=== PATIENT | male | born 1940 | race Caucasian/White ===

== ENCOUNTER 2017-05-08 11:15 | Observation (INO) | payer MEDICARE ==
[~2017-05-08] VITALS: Ht 162.6 cm; Wt 106.5 kg
--- NOTE | 2017-05-08 11:26 | PD ---
HPI Chief Complaint: Syncope Time Seen by Provider: 11:20 Travel History International Travel<30 days: No Contact w/Intl Traveler<30days: No Traveled to known affect area: No History of Present Illness HPI 76-year-old male is brought in after having a syncopal episode. He has been having diarrhea since Saturday. He had about 6 episodes on Saturday. Yesterday he had about 6 episodes and had 2 episodes today. He says he has been eating okay but is not as hungry as usual. Today he was feeling very lightheaded and dizzy. He stood up and apparently had was had a syncopal episode which lasted for about 30 seconds. He has not had syncope before. He did not have any chest pain or palpitations. He woke up and he was profusely diaphoretic. [facility] reports that they initially were not able to obtain the radial pulse. He has no history of myocardial infarction or stroke. He had a root canal about a month ago and took amoxicillin at that time. He does have a history of hypertension but has not had his medication today. He had 2 back surgeries in 2001. he is visiting here from [facility] [place] Social History Tobacco Use: No Allergies-Medications (Allergen,Severity, Reaction): Uncoded Allergies: sulfa (Allergy, Unknown, 05/08/17) Review of Systems General / Constitutional: No: Fever, Chills Eyes: No: Diploplia, Blurred Vision HENT: Positive: Lightheadedness Cardiovascular: No: Chest Pain or Discomfort, Palpitations Respiratory: No: Cough, Shortness of Breath Gastrointestinal: Positive: Diarrhea, Loss of Appetite, No: Abdominal Pain, Hematochezia Genitourinary: No: Urgency, Frequency Musculoskeletal: No: Myalgias, Arthralgias Skin: No Rash, No Itching Neurologic: Positive: Weakness, Dizziness, Syncope Hematologic/Lymphatic: No: Easy Bruising Physical Exam Narrative GENERAL: Well-developed male SKIN: Focused skin assessment warm/dry. HEAD: Atraumatic. Normocephalic. EYES: Pupils equal and round. No scleral icterus. No injection or drainage. ENT: No nasal bleeding or discharge. Mucous membranes pink and moist. NECK: Trachea midline. No JVD. CARDIOVASCULAR: Regular rate and rhythm. No murmur appreciated. RESPIRATORY: No accessory muscle use. Clear to auscultation. Breath sounds equal bilaterally. GASTROINTESTINAL: Abdomen soft, non-tender, nondistended. Hepatic and splenic margins not palpable. MUSCULOSKELETAL: No obvious deformities. No clubbing. No cyanosis. No edema. NEUROLOGICAL: Awake and alert. No obvious cranial nerve deficits. Motor grossly within normal limits. Normal speech. PSYCHIATRIC: Appropriate mood and affect; insight and judgment normal. Data Data Last Documented VS Vital Signs Date Time Temp Pulse Resp B/P (MAP) Pulse Ox O2 Delivery O2 Flow Rate FiO2 05/08/17 12:04 91 16 102/55 (71) 95 Room Air 05/08/17 11:33 99.2 Orders Orders Electrocardiogram (05/08/17 11:20) Complete Blood Count With Diff (05/08/17 11:20) Comprehensive Metabolic Panel (05/08/17 11:20) Troponin I (05/08/17 11:20) Urinalysis - C+S If Indicated (05/08/17 11:20) Magnesium (Mg) (05/08/17 11:20) Enteric Path (Stool) (05/08/17 11:20) C Diff Toxin Pcr (05/08/17 11:20) Sodium Chlor 0.9% 1000 Ml Inj (Ns 1000 M (05/08/17 11:30) Labs Laboratory Tests Test 05/08/17 11:30 White Blood Count 10.5 TH/MM3 Red Blood Count 4.72 MIL/MM3 Hemoglobin 14.5 GM/DL Hematocrit 43.9 % Mean Corpuscular Volume 93.0 FL Mean Corpuscular Hemoglobin 30.7 PG Mean Corpuscular Hemoglobin Concent 33.0 % Red Cell Distribution Width 13.2 % Platelet Count 281 TH/MM3 Mean Platelet Volume 8.5 FL Neutrophils (%) (Auto) 77.0 % Lymphocytes (%) (Auto) 9.0 % Monocytes (%) (Auto) 10.4 % Eosinophils (%) (Auto) 2.6 % Basophils (%) (Auto) 1.0 % Neutrophils # (Auto) 8.1 TH/MM3 Lymphocytes # (Auto) 0.9 TH/MM3 Monocytes # (Auto) 1.1 TH/MM3 Eosinophils # (Auto) 0.3 TH/MM3 Basophils # (Auto) 0.1 TH/MM3 CBC Comment DIFF FINAL Differential Comment Blood Urea Nitrogen 30 MG/DL Creatinine 1.70 MG/DL Random Glucose 130 MG/DL Total Protein 7.4 GM/DL Albumin 3.4 GM/DL Calcium Level 8.5 MG/DL Magnesium Level 1.8 MG/DL Alkaline Phosphatase 115 U/L Aspartate Amino Transf (AST/SGOT) 19 U/L Alanine Aminotransferase (ALT/SGPT) 24 U/L Total Bilirubin 0.3 MG/DL Sodium Level 135 MEQ/L Potassium Level 4.3 MEQ/L Chloride Level 101 MEQ/L Carbon Dioxide Level 27.3 MEQ/L Anion Gap 7 MEQ/L Estimat Glomerular Filtration Rate 39 ML/MIN Troponin I LESS THAN 0.02 NG/ML MDM Medical Decision Making Medical Screen Exam Complete: Yes Emergency Medical Condition: Yes Medical Record Reviewed: Yes Differential Diagnosis Differential includes dehydration, dysrhythmia, syncope Narrative Course Hemoglobin is 14.5 with a white count of 10,000. His BUN is 30 with creatinine of 1.7. The patient does have a history of some kidney trouble and does see a contact clerk. His is able to retrieve previous lab results and on January 10 his BUN was 26 with a creatinine of 1.5. I believe his syncope was secondary to dehydration. It was an orthostatic event. EKG shows a sinus rhythm. There are T inversions in V1 through V3 Diagnosis Primary Impression: Syncope Additional Impression: Dehydration Admitting Information Admitting Physician Requests: Admit Ra Cota MD May 08, 2017 11:26
[2017-05-08] MEDS ORDERED: SODIUM CHLOR 0.9% 1000 ML INJ 1,000 ML IV ONE (11:30)
[2017-05-08 11:33] VITALS: BP 118/64; PULSE 93; RESP 16; TEMP 99.2; O2SAT 92
[2017-05-08 11:36] LABS: AUTOMATED NEUTROPHIL # 8.1 TH/MM3 (1.8-7.7); BASOPHIL # 0.1 TH/MM3 (0-0.2); EOSINOPHIL # 0.3 TH/MM3 (0-0.4); EOSINOPHIL % 2.6 % (0.0-4.0); HEMATOCRIT 43.9 % (39.0-51.0); HEMOGLOBIN 14.5 GM/DL (13.0-17.0); LYMPHOCYTE # 0.9 TH/MM3 (1.0-4.8); MEAN CORPUSCULAR HEMOGLOBIN 30.7 PG (27.0-34.0); MEAN PLATELET VOLUME 8.5 FL (7.0-11.0); MONO % 10.4 % (0.0-8.0); MONOCYTE # 1.1 TH/MM3 (0-0.9); PLATELET COUNT 281 TH/MM3 (150-450); RED BLOOD COUNT 4.72 MIL/MM3 (4.50-5.90); RED CELL DISTRIBUTION WIDTH 13.2 % (11.6-17.2); WHITE BLOOD COUNT 10.5 TH/MM3 (4.0-11.0)
[2017-05-08 11:44] LABS: CHLORIDE 101 MEQ/L (98-107); SODIUM (NA) 135 MEQ/L (136-145)
[2017-05-08 11:47] LABS: CALCIUM 8.5 MG/DL (8.5-10.1)
[2017-05-08 11:48] LABS: ALBUMIN 3.4 GM/DL (3.4-5.0); BICARBONATE 27.3 MEQ/L (21.0-32.0); BLOOD UREA NITROGEN 30 MG/DL (7-18); GLUCOSE,RANDOM 130 MG/DL (74-106); MAGNESIUM 1.8 MG/DL (1.5-2.5)
[2017-05-08 11:51] LABS: ALT (GPT) 24 U/L (12-78); AST (GOT) 19 U/L (15-37); GLOMERULAR FILTRATION RATE 39 ML/MIN (>89)
[2017-05-08 11:52] LABS: TOTAL BILIRUBIN ADULT 0.3 MG/DL (0.2-1.0)
[2017-05-08 11:53] LABS: TOTAL PROTEIN 7.4 GM/DL (6.4-8.2)
[2017-05-08 11:54] LABS: ALKALINE PHOSPHATASE 115 U/L (45-117)
[2017-05-08 11:56] LABS: TROPONIN I LESS THAN 0.02 NG/ML (0.02-0.05)
[2017-05-08 12:04] VITALS: BP 102/55; PULSE 91; RESP 16; O2SAT 95
[2017-05-08] MEDS ORDERED: ACETAMINOPHEN 325 MG TAB PO PRN (12:30)
[2017-05-08] MEDS ORDERED: ONDANSETRON HCL 4 MG/2 ML VIAL IVP PRN (12:30)
[2017-05-08] MEDS ORDERED: SODIUM CHLORIDE 0.9% FLUSH 10 ML FLUSH IV FLUSH PRN (12:30)
[2017-05-08] MEDS ORDERED: NALOXONE HCL 0.4 MG/ML AMP IV PUSH PRN (12:30)
--- NOTE | 2017-05-08 12:46 | EKG ---
Date Performed: 05/08/2017 Time Performed: 11:31:32 PTAGE: 76 years EKG: Sinus rhythm LOW QRS VOLTAGE IN PRECORDIAL LEADS NONSPECIFIC T-WAVE ABNORMALITY BORDERLINE ECG NO PREVIOUS TRACING DOCTOR: Francisco Rodriguez Interpretating Date/Time 05/08/2017 12:45:39
[2017-05-08] MEDS: SODIUM CHLOR 0.9% 1000 ML INJ 1,000 ML IV SCH ×2 (12:47→22:21)
[2017-05-08 13:06] VITALS: BP 90/53; PULSE 104; RESP 20; O2SAT 96
[2017-05-08 13:45] VITALS: BP 113/62; PULSE 94; RESP 18; TEMP 100.6; O2SAT 94
[2017-05-08] MEDS ORDERED: ENAL20TA PO (14:29)
[2017-05-08] MEDS ORDERED: PRAV10TA PO (14:30)
[2017-05-08] MEDS ORDERED: METO-309 PO (14:30)
[2017-05-08] MEDS ORDERED: CHLOR50 PO (14:32)
[2017-05-08 14:44] LABS: BILIRUBIN, URINE NEG (NEG); BLOOD, URINE NEG (NEG); GLUCOSE,URINE NEG (NEG); KETONE, URINE NEG (NEG); NITRITE,URINE NEG (NEG); URINE LEUKOCYTE ESTERASE NEG (NEG)
[2017-05-08 15:05] LABS: SQUAMOUS EPITHELIAL CELL URINE 0-5 /hpf (0-5); URINE COLOR YELLOW (YELLW/STRAW); WBC, URINE 0-2 /hpf (0-5)
--- NOTE | 2017-05-08 15:52 | HHI.HP ---
[facility] Non-Staff Admission Diagnosis SYNCOPE, DEHYDRATION Diagnoses: Chief Complaint: Syncope Travel History International Travel<30 Days: No Contact w/Intl Traveler <30 Da: No Traveled to Known Affected Are: No Sepsis Criteria SIRS Criteria (2 or more): Heart rate over 90 History of Present Illness This is a pleasant 76-year-old male patient with a known medical history of hypertension and hyperlipidemia and chronic kidney disease who presented to the ED post syncopal episode. Patient states that he was sitting on his porch around 10 AM this morning with his when he got up from the table and stated how he felt lightheaded and "did not feel right"when shortly after, per , his eyes rolled back and he fell towards the wall. states that patient was caught by a friend and herself and softly brought to the floor. Patient was reportedly with loss of consciousness for 30 seconds and slowly woke up. Denies hitting his head. Denies ever having a syncopal episode before. Patient last remembers waking up on the ground and [facility] tending to him. Patient denies any recent fevers, chills, headache, shortness of breath, abdominal pain, nausea, vomiting or dysuria. Patient does state that he has had a nonproductive cough for the past few weeks. He also states that he's had diarrhea last week, his last bout was on Saturday. Patient states his appetite has been good. Denies any changes in medications. Does state he underwent a root canal one month ago, was given amoxicillin at that time. Patient is visiting from [place] with his . Review of Systems Constitutional: COMPLAINS OF: Diaphoretic episodes, DENIES: Fatigue, Fever, Chills Eyes: DENIES: Blurred vision, Diplopia Respiratory: COMPLAINS OF: Cough, DENIES: Sputum production, Shortness of breath Cardiovascular: COMPLAINS OF: Syncope, DENIES: Chest pain, Palpitations Gastrointestinal: COMPLAINS OF: Diarrhea, DENIES: Abdominal pain, Black stools , Bloody stools, Constipation, Nausea, Vomiting Genitourinary: DENIES: Sexual dysfunction Musculoskeletal: DENIES: Joint pain Integumentary: DENIES: Abnormal pigmentation Psychiatric: DENIES: Anxiety Except as stated in HPI: all other systems reviewed are Neg Past Family Social History Past Medical History Hypertension Hyperlipidemia Diverticulitis Chronic kidney disease Past Surgical History Back surgery with elvira placement 2 in 2001. Reported Medications Active Reported Chlorthalidone 50 Mg Tab 50 Mg PO DAILY Pravastatin 10 Mg Tab 10 Mg PO HS Lopressor (Metoprolol Tartrate) 50 Mg Tab 50 Mg PO BID Enalapril (Enalapril Maleate) 20 Mg Tab 20 Mg PO BID Allergies: Uncoded Allergies: sulfa (Allergy, Unknown, 05/08/17) Active Ordered Medications Current Medications Medications (Trade) Dose Ordered Sig/Kvng Route Start Time Stop Time Status Last Admin Sodium Chloride 1,000 ml @ 100 mls/hr Q10H IV 05/08/17 12:17 05/08/17 12:47 (NS Flush) 2 ml UNSCH PRN IV FLUSH 05/08/17 12:30 (NS Flush) 2 ml BID IV FLUSH 05/08/17 21:00 (Tylenol) 650 mg Q4H PRN PO 05/08/17 12:30 05/08/17 14:04 (Zofran Inj) 4 mg Q6H PRN IVP 05/08/17 12:30 (Narcan Inj) 0.4 mg UNSCH PRN IV PUSH 05/08/17 12:30 Family History Patient's father had history of dementia. Mother had a history of cardiovascular disease. Social History Denies any previous or current tobacco use. Admits to social alcohol use. Denies any illicit drug use. Physical Exam Vital Signs Vital Signs Date Time Temp Pulse Resp B/P (MAP) Pulse Ox O2 Delivery O2 Flow Rate FiO2 05/08/17 13:45 100.6 94 18 113/62 (79) 94 05/08/17 13:37 05/08/17 13:06 104 20 90/53 (65) 96 Room Air 05/08/17 12:04 91 16 102/55 (71) 95 Room Air 05/08/17 11:33 99.2 93 16 118/64 (82) 92 Physical Exam GENERAL: Well-nourished, well-developed patient in NAD. SKIN: Warm and dry. No rash. HEAD: Normocephalic. Atraumatic. EYES: Pupils equal and round. No scleral icterus. No injection or drainage. ENT: No nasal bleeding or discharge. Mucous membranes pink and moist. NECK: Supple. Trachea midline. CARDIOVASCULAR: Regular rate and rhythm. S1, S2 noted. No murmur appreciated. RESPIRATORY: No accessory muscle use. Clear to auscultation. Breath sounds equal bilaterally. GASTROINTESTINAL: Abdomen soft, non-tender, nondistended. Round. Normoactive bowel sounds x4. MUSCULOSKELETAL: No obvious deformities. Extremities without clubbing, cyanosis , or edema. NEUROLOGICAL: Awake and alert. No obvious cranial nerve deficits. Motor grossly within normal limits. 5/5 muscle strength in bilateral upper and lower extremities. Normal speech. PSYCHIATRIC: Appropriate mood and affect; insight and judgment normal. Laboratory Laboratory Tests Test 05/08/17 11:30 05/08/17 14:13 White Blood Count 10.5 Red Blood Count 4.72 Hemoglobin 14.5 Hematocrit 43.9 Mean Corpuscular Volume 93.0 Mean Corpuscular Hemoglobin 30.7 Mean Corpuscular Hemoglobin Concent 33.0 Red Cell Distribution Width 13.2 Platelet Count 281 Mean Platelet Volume 8.5 Neutrophils (%) (Auto) 77.0 Lymphocytes (%) (Auto) 9.0 Monocytes (%) (Auto) 10.4 Eosinophils (%) (Auto) 2.6 Basophils (%) (Auto) 1.0 Neutrophils # (Auto) 8.1 Lymphocytes # (Auto) 0.9 Monocytes # (Auto) 1.1 Eosinophils # (Auto) 0.3 Basophils # (Auto) 0.1 CBC Comment DIFF FINAL Differential Comment Blood Urea Nitrogen 30 Creatinine 1.70 Random Glucose 130 Total Protein 7.4 Albumin 3.4 Calcium Level 8.5 Magnesium Level 1.8 Alkaline Phosphatase 115 Aspartate Amino Transf (AST/SGOT) 19 Alanine Aminotransferase (ALT/SGPT) 24 Total Bilirubin 0.3 Sodium Level 135 Potassium Level 4.3 Chloride Level 101 Carbon Dioxide Level 27.3 Anion Gap 7 Estimat Glomerular Filtration Rate 39 Troponin I LESS THAN 0.02 Urine Color YELLOW Urine Turbidity CLEAR Urine pH 6.0 Urine Specific [place] 1.013 Urine Protein NEG Urine Glucose (UA) NEG Urine Ketones NEG Urine Occult Blood NEG Urine Nitrite NEG Urine Bilirubin NEG Urine Leukocyte Esterase NEG Urine WBC 0-2 Urine Squamous Epithelial Cells 0-5 Microscopic Urinalysis Comment CULT NOT INDICATED Result Diagram: 05/08/17 1130 05/08/17 1130 Septic Shock Reassessment Septic shock perfusion: reassessment completed Caprini VTE Risk Assessment Caprini VTE Risk Assessment: Mod/High Risk (score >= 2) Caprini Risk Assessment Model Point Value = 1 Point Value = 2 Point Value = 3 Point Value = 5 Age 41-60 Minor surgery BMI > 25 kg/m2 Swollen legs Varicose veins or History of unexplained or recurrent spontaneous Oral contraceptives or hormone replacement Sepsis (< 1 month) Serious lung disease, including pneumonia (< 1 month) Abnormal pulmonary function Acute myocardial infarction Congestive heart failure (< 1 month) History of inflammatory bowel disease Medical patient at bed rest Age 61-74 Arthroscopic surgery Major open surgery (> 45 min) Laparoscopic surgery (> 45 min) Malignancy Confined to bed (> 72 hours) Immobilizing plaster cast Central venous access Age >= 75 History of VTE Family history of VTE Factor V Leiden Prothrombin [id number] Lupus anticoagulant Anticardiolipin antibodies Elevated serum homocysteine Heparin-induced thrombocytopenia Other congenital or acquired thrombophilia Stroke (< 1 month) Elective arthroplasty Hip, pelvis, or leg fracture Acute spinal cord injury (< 1 month) Prophylaxis Regimen Total Risk Factor Score Risk Level Prophylaxis Regimen 0-1 Low Early ambulation 2 Moderate Order ONE of the following: *Sequential Compression Device (SCD) *Heparin 5000 units SQ BID 3-4 Higher Order ONE of the following medications: *Heparin 5000 units SQ TID *Enoxaparin/Lovenox 40 mg SQ daily (WT < 150 kg, CrCl > 30 mL/min) *Enoxaparin/Lovenox 30 mg SQ daily (WT < 150 kg, CrCl > 10-29 mL/min) *Enoxaparin/Lovenox 30 mg SQ BID (WT < 150 kg, CrCl > 30 mL/min) AND/OR *Sequential Compression Device (SCD) 5 or more Highest Order ONE of the following medications: *Heparin 5000 units SQ TID (Preferred with Epidurals) *Enoxaparin/Lovenox 40 mg SQ daily (WT < 150 kg, CrCl > 30 mL/min) *Enoxaparin/Lovenox 30 mg SQ daily (WT < 150 kg, CrCl > 10-29 mL/min) *Enoxaparin/Lovenox 30 mg SQ BID (WT < 150 kg, CrCl > 30 mL/min) AND *Sequential Compression Device (SCD) Assessment and Plan Problem List: (1) Syncope ICD Code: R55 - Syncope and collapse Status: Acute Plan: Patient presented post syncopal episode suspect secondary to dehydration due to diarrhea. Denies hitting head. Positive loss of consciousness. Status post 1 L NS bolus. Continue IV fluid. Encouraged PO intake. No leukocytosis. TMAX 100.6. Source unknown. UA negative. Stool studies ordered including C. difficile. Follow. Patient states diarrhea has almost resolved. CBC and BMP essentially unremarkable. Orthostatic blood pressures obtained, and are negative. PT following, appreciate input and recommendations. Symptoms have all improved at this time. Monitor. Continue cardiac telemetry, monitor for any arrhythmias. EKG reviewed showing NSR with controlled HR. Monitor for any further fevers. Will check lab work in a.m. Follow. Patient's blood pressure has been on the lower side. Will hold home BP medications and continue home metoprolol for heart rate control. Monitor BP trends. Hypotension could be a reason for syncopal episode. (2) Chronic kidney disease (CKD) ICD Code: N18.9 - Chronic kidney disease, unspecified Plan: Creatinine upon presentation 1.7. Per patient's patient's baseline is 1.5. Continue IV fluids. Most likely dehydrated. (3) Cough ICD Code: R05 - Cough Plan: Patient with complaints of cough 2 weeks. Will obtain chest x-ray. Continue to follow. (4) Hyperlipidemia ICD Code: E78.5 - Hyperlipidemia, unspecified Plan: Continue home statin. DVT Prophylaxis: SCDs. Problem Qualifiers (1) Syncope: Monserrat Johnson May 08, 2017 15:52
[2017-05-08 16:00] VITALS: BP 117/63; PULSE 90; RESP 18; TEMP 99.3; O2SAT 95
--- NOTE | 2017-05-08 16:42 | RADRPT ---
EXAM DATE/TIME: 05/08/2017 16:15 [facility] COMPARISON: No previous studies available for comparison. INDICATIONS : Cough, chest congestion for 3 days MEDICAL HISTORY : None. SURGICAL HISTORY : None. ENCOUNTER: Initial ACUITY: 3 days PAIN SCORE: 0/10 LOCATION: Bilateral chest FINDINGS: Mild cardiomegaly is noted. The pulmonary vascular pattern is normal. The lungs are clear. CONCLUSION: Mild cardiomegaly. No acute focal pulmonary infiltrate or pulmonary vascular congesti on. Robert Luis MD on May 08, 2017 at 16:39 Board Certified Radiologist. This report was verified electronically.
[2017-05-08 20:00] VITALS: BP_SYST 107; BP_SYST 125; BP_SYST 135; BP_DIAS 68; BP_DIAS 72; BP_DIAS 73; PULSE 75; PULSE 85; RESP 20; TEMP 98.7; O2SAT 96
[2017-05-08 20:14] LABS: CHOLESTEROL 158 MG/DL (120-200); TRIGLYCERIDES 128 MG/DL (42-150)
[2017-05-08 20:16] LABS: HDL CHOLESTEROL 39.5 MG/DL (40.0-60.0); LDL CHOLESTEROL 93 MG/DL (0-99)
[2017-05-08] MEDS ORDERED: PRAVASTATIN SOD 10 MG TAB PO SCH (21:00)
[2017-05-08] MEDS: SODIUM CHLORIDE 0.9% FLUSH 10 ML FLUSH IV FLUSH SCH (21:06)
[2017-05-08] MEDS: METOPROLOL TARTRATE 50 MG TAB PO SCH (21:06)
[2017-05-09] VITALS: BP 103/65; PULSE 67; RESP 20; TEMP 98.8; O2SAT 97
[2017-05-09 04:00] VITALS: BP 119/69; PULSE 68; RESP 20; TEMP 97.9; O2SAT 97
[2017-05-09 07:07] LABS: AUTOMATED NEUTROPHIL # 5.1 TH/MM3 (1.8-7.7); BASOPHIL # 0.1 TH/MM3 (0-0.2); BASOPHIL % 0.9 % (0.0-2.0); EOSINOPHIL # 0.2 TH/MM3 (0-0.4); EOSINOPHIL % 2.2 % (0.0-4.0); HEMOGLOBIN 13.5 GM/DL (13.0-17.0); LYMPH % 17.8 % (9.0-44.0); LYMPHOCYTE # 1.4 TH/MM3 (1.0-4.8); MEAN CELL VOLUME 93.9 FL (80.0-100.0); MEAN PLATELET VOLUME 8.7 FL (7.0-11.0); MONO % 13.8 % (0.0-8.0); MONOCYTE # 1.1 TH/MM3 (0-0.9); NEUT % 65.3 % (16.0-70.0); PLATELET COUNT 237 TH/MM3 (150-450); RED BLOOD COUNT 4.37 MIL/MM3 (4.50-5.90); RED CELL DISTRIBUTION WIDTH 13.6 % (11.6-17.2); WHITE BLOOD COUNT 7.9 TH/MM3 (4.0-11.0)
[2017-05-09 07:13] LABS: BICARBONATE 25.2 MEQ/L (21.0-32.0)
[2017-05-09 07:42] LABS: CREATININE 1.3 MG/DL (0.60-1.30)
[2017-05-09 08:00] VITALS: BP 152/93; PULSE 81; RESP 18; TEMP 99.3; O2SAT 95
[2017-05-09 08:09] VITALS: PULSE 72
[2017-05-09] MEDS: SODIUM CHLOR 0.9% 1000 ML INJ 1,000 ML IV SCH (08:33)
[2017-05-09] MEDS: SODIUM CHLORIDE 0.9% FLUSH 10 ML FLUSH IV FLUSH SCH (08:34)
[2017-05-09] MEDS: METOPROLOL TARTRATE 50 MG TAB PO SCH (08:34)
--- NOTE | 2017-05-09 08:49 | HHI.PR ---
Subjective Remarks Follow-up syncopal episode and dehydration. Patient seen and examined, sitting up in chair eating breakfast. States he's doing much improved, all symptoms have resolved. No lightheadedness, dizziness or syncopal episodes overnight. Patient has been eating well and drinking well. Has received IV fluids. Positive BM. Denies any nausea or vomiting. All vitals are stable. Afebrile. Objective Vitals Vital Signs Date Time Temp Pulse Resp B/P (MAP) Pulse Ox O2 Delivery O2 Flow Rate FiO2 05/09/17 08:00 99.3 81 18 152/93 (112) 95 05/09/17 04:00 97.9 68 20 119/69 (86) 97 05/09/17 00:00 98.8 67 20 103/65 (78) 97 05/08/17 20:00 98.7 85 20 107/68 (81) 96 125/72 (89) 135/73 (93) 05/08/17 20:00 75 05/08/17 16:00 99.3 90 18 117/63 (81) 95 05/08/17 13:45 100.6 94 18 113/62 (79) 94 05/08/17 13:37 05/08/17 13:06 104 20 90/53 (65) 96 Room Air 05/08/17 12:04 91 16 102/55 (71) 95 Room Air 05/08/17 11:33 99.2 93 16 118/64 (82) 92 I/O 05/08/17 05/08/17 05/08/17 05/09/17 05/09/17 05/09/17 07:00 15:00 23:00 07:00 15:00 23:00 Intake Total 1000 ml 1670 ml 480 ml Output Total 1350 ml 600 ml Balance 1000 ml 320 ml -120 ml Intake Oral 670 ml 480 ml IV Total 1000 ml 1000 ml Output Urine Total 1350 ml 600 ml Result Diagram: 05/09/1730 05/09/17 0630 Imaging Last Impressions Chest X-Ray 05/08/17 0000 Signed Impressions: Service Date/Time: Monday, May 08, 2017 16:15 - CONCLUSION: Mild cardiomegaly. No acute focal pulmonary infiltrate or pulmonary vascular congestion. Robert Luis MD Objective Remarks GENERAL: Well-nourished, well-developed patient in NAD. SKIN: Warm and dry. No rash. HEENT: Normocephalic. Atraumatic.Pupils equal and round. No scleral icterus. No injection or drainage. No nasal bleeding or discharge. Mucous membranes pink and moist. NECK: Supple. Trachea midline. CARDIOVASCULAR: Regular rate and rhythm. S1, S2 noted. No murmur appreciated. RESPIRATORY: No accessory muscle use. Clear to auscultation. Breath sounds equal bilaterally. GASTROINTESTINAL: Abdomen soft, non-tender, nondistended. Normoactive bowel sounds x4. MUSCULOSKELETAL: No obvious deformities. Extremities without clubbing, cyanosis , or edema. NEUROLOGICAL: Awake and alert. No obvious cranial nerve deficits. Motor grossly within normal limits. 5/5 muscle strength in bilateral upper and lower extremities. Normal speech. PSYCHIATRIC: Appropriate mood and affect; insight and judgment normal. A/P Problem List: (1) Syncope ICD Code: R55 - Syncope and collapse Status: Acute Plan: Patient presented post syncopal episode suspect secondary to dehydration due to diarrhea. Denies hitting head. Positive loss of consciousness. Status post IV fluid. Tolerating by mouth intake. Denies any further diarrhea. No leukocytosis. Afebrile overnight. UA negative. CBC and BMP essentially unremarkable. Orthostatic blood pressures obtained, and are negative. PT following, no further recommendations. Symptoms have all improved at this time. No arrhythmias overnight on cardiac telemetry. EKG reviewed showing NSR with controlled HR. Patient's blood pressure has normalized. Although has been on the lower side and even holding blood pressure medicines. During hospitalization patient was restarted on his metoprolol. Advised patient to continue taking metoprolol and his enalapril. And to follow up with PCP. Encouraged also to keep a blood pressure diary and bring it to his PCP upon discharge in a week. (2) Chronic kidney disease (CKD) ICD Code: N18.9 - Chronic kidney disease, unspecified Plan: Creatinine upon presentation 1.7 now 1.3. Per patient's patient's baseline is 1.5. (3) Cough ICD Code: R05 - Cough Plan: Patient with complaints of cough 2 weeks. X-ray reviewed showing no acute focal pulmonary infiltrate or pulmonary congestion. (4) Hyperlipidemia ICD Code: E78.5 - Hyperlipidemia, unspecified Plan: Continue home statin. Problem Qualifiers (1) Syncope: Alex,Monserrat REGIONAL MANAGER May 09, 2017 08:49
--- NOTE | 2017-05-09 08:52 | HHI.DCPOC ---
Discharge Care Plan Diagnosis: (1) Dehydration (2) Syncope Goals to Promote Your Health * To prevent worsening of your condition and complications * To maintain your health at the optimal level Directions to Meet Your Goals Take your medications as prescribed Follow your dietary instruction Follow activity as directed Keep your appointments as scheduled Take your immunizations and boosters as scheduled If your symptoms worsen call your PCP, if no PCP go to Urgent Care Center or Emergency Room Smoking is Dangerous to Your Health. Avoid second hand smoke Call the 24-hour hour crisis hotline for domestic abuse at Monserrat Johnson May 09, 2017 08:52
[2017-05-09 16:43] LABS: HEMOGLOBIN A1C 6.1 % (4.3-6.0)
== END 2017-05-09 10:14 | disposition home or self-care (01) ==
LOC: PHED 11:15 → PHEDA 12:19 → PH3A 13:29
PROVIDERS: ADMIT Hospitalist; ATTEND Hospitalist
DX: R55 Syncope and collapse (principal); E86.0 Dehydration; N18.9 Chronic kidney disease, unspecified; I12.9 Hypertensive chronic kidney disease with stage 1 through stage 4 chronic kidney disease, or unspecified chronic kidney disease; E78.5 Hyperlipidemia, unspecified; R94.31 Abnormal electrocardiogram [ECG] [EKG]; W19.XXXA Unspecified fall, initial encounter
CPT/HCPCS: 71045; 80048; 80053; 80061; 81001; 83036; 83735; 84484; 85025; 93005; 96360; 96361; 97110; 97116; 97162; 99285; G0378; G8987; G8988; J7030